=== PATIENT | male | born 1985 | race Caucasian/White ===

== ENCOUNTER 2017-10-21 22:36 | Emergency (ER) | payer SELFPAY ==
[~2017-10-21] VITALS: Ht 193 cm; Wt 83.9 kg
[2017-10-21 23:26] VITALS: BP 117/84
[2017-10-22] MEDS ORDERED: Albuterol ud Inhalation HHN ONE
[2017-10-22] MEDS ORDERED: Ipratropium 0.02% Inh Soln 2.5ml UD HHN ONE
[2017-10-22 00:40] LABS: APPEARANCE,URINE CLEAR; BILIRUBIN, URINE NEGATIVE (NEGATIVE); COLOR,URINE PALE YELLOW; GLUCOSE, URINE (UA) NEGATIVE (NEGATIVE); KETONES,URINE NEGATIVE (NEGATIVE); LEUKOCYTE ESTERASE ,URINE NEGATIVE (NEGATIVE); NITRITE,URINE NEGATIVE (NEGATIVE); PH,URINE 7 (4.5-8.0); PROTEIN,URINE NEGATIVE (NEGATIVE); UROBILINOGEN,URINE NORMAL MG/DL (0.0-1.0)
[2017-10-22 00:40] LABS: BASOPHILS % (AUTO) 1.1 % (0.0-2.0); EOSINOPHILS % (AUTO) 0.9 % (0.0-3.0); HEMATOCRIT 44.7 % (42.0-52.0); HEMOGLOBIN 15.3 G/DL (14.2-18.0); LYMPHOCYTES % (AUTO) 19.6 % (20.0-45.0); MEAN CORPUSCULAR VOLUME 89 FL (80-99); MONOCYTES % (AUTO) 8.9 % (1.0-10.0); NEUTROPHILS % (AUTO) 69.5 % (45.0-75.0); PLATELET COUNT 271 K/UL (150-450); RED BLOOD COUNT 5.04 M/UL (4.70-6.10); RED CELL DISTRIBUTION WIDTH 10.4 % (11.6-14.8); WHITE BLOOD COUNT 8.4 K/UL (4.8-10.8)
[2017-10-22 01:04] LABS: ANION GAP 9 mmol/L (5-15); BLOOD UREA NITROGEN 11 mg/dL (7-18); CALCIUM 9.9 MG/DL (8.5-10.1); CARBON DIOXIDE 29 MMOL/L (21-32); CHLORIDE 100 MMOL/L (98-107); CREATININE 0.9 MG/DL (0.55-1.30); POTASSIUM 3.6 MMOL/L (3.5-5.1); SODIUM 138 MMOL/L (136-145)
[2017-10-22 01:07] LABS: ALANINE AMINOTRANSFERASE 21 U/L (12-78); ALBUMIN 4.4 G/DL (3.4-5.0); ALBUMIN/GLOBULIN RATIO 0.9 (1.0-2.7); ALKALINE PHOSPHATASE 79 U/L (46-116); ASPARTATE AMINO TRANSFERASE 21 U/L (15-37); BILIRUBIN,TOTAL 0.5 MG/DL (0.2-1.0)
[2017-10-22] MEDS ORDERED: cefTRIAXone 1 GM in NS 55 ML IVPB ONE (02:00)
[2017-10-22] MEDS ORDERED: Azithromycin 500 MG in D5W 275 ML IVPB ONE (02:00)
--- NOTE | 2017-10-22 02:55 | Emergency Room Report ---
History of Present Illness General Chief Complaint: Upper Respiratory Illness Source: Patient Present Illness HPI The patient presents after coughing up a small amount of blood mixed with phlegm tonight. He took a dose of azithromycin earlier that was prescribed. There has been a complicated antecedent course. The patient's been ill for 2 weeks. He had a mild upper respiratory infection that got better without prescription or being seen. 5 days ago he had an increase in upper back pain. He saw a chiropractor and after adjustment this got better. However that night he started having fevers and chills. He also has had myalgias. He was evaluated at urgent care yesterday. No labs or xrays performed. Azithromycin was prescribed. He took his first dose today. The patient has heard himself wheezing at night. He denies any history of asthma. He does not smoke. Is not exposed to secondhand smoke. Patient is a runner. There is a family history of arthritis and his father has diabetes. He denies any polyuria or polydipsia. No h/o clots, immobilization, calf pain or swelling. Denies major medical problems. Not exposed to TB. No recent travel. Allergies: Coded Allergies: No Known Allergies (Unverified , 10/21/17) Patient History Past Medical History: see triage record Social History: Denies: smoking, alcohol use Social History Narrative TV production Reviewed Nursing Documentation: PMH: Agreed; PSxH: Agreed Nursing Documentation-PMH Past Medical History: No Stated History Review of Systems All Other Systems: negative except mentioned in HPI Physical Exam Vital Signs Date Time Temp Pulse Resp B/P (MAP) Pulse Ox O2 Delivery O2 Flow Rate FiO2 10/21/17 23:20 98.7 87 18 117/84 98 Room Air 98.8 10/22/17 00:34 21 Sp02 EP Interpretation: reviewed, normal General Appearance: well appearing, no apparent distress, GCS 15 Head: normocephalic Eyes: bilateral eye normal inspection, bilateral eye PERRL ENT: moist mucus membranes Neck: supple Respiratory: lungs clear, normal breath sounds Cardiovascular #1: regular rate, rhythm Cardiovascular #2: 2+ radial (R) Gastrointestinal: normal inspection, normal bowel sounds, non tender, no mass, non-distended, scaphoid Musculoskeletal: back normal, gait/station normal, normal range of motion, no calf tenderness, Holli's Sign negative Neurologic: alert, oriented x3, grossly normal Psychiatric: mood/affect normal Skin: normal inspection, warm/dry Medical Decision Making Diagnostic Impression: Primary Impression: Right upper lobe pneumonia Qualified Codes: J18.1 - Lobar pneumonia, unspecified organism ER Course The patient presents with hemoptysis and fever and chills. Set protracted complicated history. Differential includes pneumonia, vasculitides, bronchitis , bronchospasm, mass, pulmonary embolus amongst others. The clinical history and exam are against pulmonary embolus. The patient will be evaluated with EKG , chest x-ray and labs. EKG was normal sinus rhythm with nonspecific ST-T wave changes. Chest x-ray shows right upper lobe infiltrate. Labs are significant for normal white count and lactate. Improved post breathing treatments. Based on the h/o hemoptysis - I suggested hospital admission. He is reluctant due to lack of insurance. He feels better with treatment and is requesting outpatient observation. (Based on VS and improvement, outpatient observation is considered.) Accucheck slightly high. Discussed treatment plan with patient with strict instructions to return if not doing well as well as importance of follow up. Patient stable for outpatient observation and treatment. Laboratory Tests Test 10/22/17 00:15 10/22/17 00:20 Urine Color Pale yellow Urine Appearance Clear Urine pH 7 (4.5-8.0) Urine Specific [place] 1.005 (1.005-1.035) Urine Protein Negative (NEGATIVE) Urine Glucose (UA) Negative (NEGATIVE) Urine Ketones Negative (NEGATIVE) Urine Occult Blood Negative (NEGATIVE) Urine Nitrite Negative (NEGATIVE) Urine Bilirubin Negative (NEGATIVE) Urine Urobilinogen Normal MG/DL (0.0-1.0) Urine Leukocyte Esterase Negative (NEGATIVE) White Blood Count 8.4 K/UL (4.8-10.8) Red Blood Count 5.04 M/UL (4.70-6.10) Hemoglobin 15.3 G/DL (14.2-18.0) Hematocrit 44.7 % (42.0-52.0) Mean Corpuscular Volume 89 FL (80-99) Mean Corpuscular Hemoglobin 30.4 PG (27.0-31.0) Mean Corpuscular Hemoglobin Concent 34.2 G/DL (32.0-36.0) Red Cell Distribution Width 10.4 % (11.6-14.8) L Platelet Count 271 K/UL (150-450) Mean Platelet Volume 7.5 FL (6.5-10.1) Neutrophils (%) (Auto) 69.5 % (45.0-75.0) Lymphocytes (%) (Auto) 19.6 % (20.0-45.0) L Monocytes (%) (Auto) 8.9 % (1.0-10.0) Eosinophils (%) (Auto) 0.9 % (0.0-3.0) Basophils (%) (Auto) 1.1 % (0.0-2.0) Prothrombin Time 10.2 SEC (9.30-11.50) Prothrombin Time INR 1.0 (0.9-1.1) PTT 31 SEC (23-33) Sodium Level 138 MMOL/L (136-145) Potassium Level 3.6 MMOL/L (3.5-5.1) Chloride Level 100 MMOL/L (98-107) Carbon Dioxide Level 29 MMOL/L (21-32) Anion Gap 9 mmol/L (5-15) Blood Urea Nitrogen 11 mg/dL (7-18) Creatinine 0.9 MG/DL (0.55-1.30) Estimate Glomerular Filtration Rate > 60 mL/min (>60) Glucose Level 90 MG/DL (74-106) Lactic Acid Level 0.60 mmol/L (0.66-2.22) L Calcium Level 9.9 MG/DL (8.5-10.1) Total Bilirubin 0.5 MG/DL (0.2-1.0) Aspartate Amino Transferase (AST) 21 U/L (15-37) Alanine Aminotransferase (ALT) 21 U/L (12-78) Alkaline Phosphatase 79 U/L (46-116) Total Protein 9.3 G/DL (6.4-8.2) H Albumin 4.4 G/DL (3.4-5.0) Globulin 4.9 g/dL Albumin/Globulin Ratio 0.9 (1.0-2.7) L EKG Diagnostic Results Rate: normal Rhythm: NSR ST Segments: no acute changes Rhythm Strip Diag. Results EP Interpretation: yes Rhythm: NSR, no PVC's, no ectopy Chest X-Ray Diagnostic Results Chest X-Ray Diagnostic Results : Chest X-Ray Ordered: Yes # of Views/Limited/Complete: 1 View Indication: Other EP Interpretation: Yes Interpretation: no effusion, no pneumothorax, other - RUL infiltrate Impression: Other Electronically Signed by: Electronically signed by Michael Dodge MD Last Vital Signs Date Time Temp Pulse Resp B/P (MAP) Pulse Ox O2 Delivery O2 Flow Rate FiO2 10/22/17 00:42 89 20 99 Room Air 21 10/21/17 23:26 98.8 117/84 98.8 Scripts Azithromycin* (ZITHROMAX*) 250 Mg Tablet 250 MG ORAL DAILY, #4 TAB Prov: Michael Dodge M.D. 10/22/17 Albuterol Sulfate* (ALBUTEROL SULFATE MDI*) 8.5 Gm Hfa.aer.ad 2 PUFF INH Q6H, #1 EA 0 Refills Prov: Michael Dodge M.D. 10/22/17 Referrals: NOT CHOSEN LORI/,REFERRING (PCP) Michael Dodge M.D. October 22, 2017 02:55
[2017-10-22] MEDS ORDERED: ALBUTEROL SULF8.5 GM INH (03:16)
[2017-10-22] MEDS ORDERED: ZITHROMAX250 MG ORAL (03:16)
[2017-10-22 03:29] VITALS: BP 124/71
[2017-10-22 03:31] VITALS: BP 124/71
--- NOTE | 2017-10-22 11:16 | Diagnostic Imaging Report ---
Indication: Cough Comparison: None A single view chest radiograph was obtained. Findings: There is a nodular appearing density with ill-defined margins in the right upper lobe. Central lucency noted. Findings may be due to pneumonia or other inflammatory/infectious process. Cavitary lesion is not excluded. Follow-up is recommended by plain film until resolution. Cardiac mediastinal silhouette is normal. The bones are unremarkable. No evidence of a pleural effusion. IMPRESSION: Nodular infiltrate in the right upper lobe. Cavitary lesion not excluded. Follow-up plain film until resolution. CT may be needed upon follow-up imaging. Correlate clinically.
--- NOTE | 2017-10-22 18:11 | Cardiology Report ---
APPROVED REPORT EKG Measurement Heart [id number] Normal sinus rhythm T wave abnormality, consider inferior ischemia Abnormal ECG
== END 2017-10-22 03:30 | disposition home or self-care (01) ==
LOC: EMR 23:40 → EDBEDREQ 10-22 01:50 → CANBEDREQ 10-22 01:52 → EMR 10-22 03:30
DX: J18.1 Lobar pneumonia, unspecified organism (principal)
CPT/HCPCS: 36415; 71045; 80053; 81003; 83605; 85025; 85610; 85730; 93005; 94640; 96361; 96374; 99284; J0456; J0696